=== PATIENT | male | born 1995 | race Caucasian/White ===

== ENCOUNTER 2017-07-01 11:51 | Emergency (ER) | payer OTHER ==
[~2017-07-01] VITALS: Ht 193 cm; Wt 100.0 kg
[2017-07-01 11:56] VITALS: BP 113/75; TEMP 97.5
[2017-07-01] MEDS ORDERED: VYVANSE10 MG PO (12:41)
[2017-07-01 12:52] LABS: COLLECTION METHOD CLEAN CATCH
[2017-07-01 13:05] LABS: MUCOUS Present /lpf; PH 5 (5-8); SQUAMOUS EPITHELIAL 0-2 /hpf; URINE APPEARANCE Cloudy; URINE BACTERIA None Seen /hpf; URINE BILIRUBIN Negative (NEGATIVE); URINE BLOOD 3+ (NEGATIVE); URINE COLOR Yellow; URINE GLUCOSE Negative (NEGATIVE); URINE KETONE Negative (NEGATIVE); URINE LEUKOCYTE ESTERASE Negative (NEGATIVE); URINE PROTEIN(semi-quant) 1+ (NEGATIVE); URINE RBC >50 /hpf; URINE WBC None Seen /hpf
[2017-07-01] MEDS ORDERED: NORCO 325 MG-51 TAB PO (14:32)
[2017-07-01 14:53] VITALS: PULSE 89
== END 2017-07-01 14:53 | disposition home or self-care (01) ==
LOC: COL.ER 11:51
PROVIDERS: Nurse Practitioner
DX: N20.1 Calculus of ureter (principal)
CPT/HCPCS: J2270; J2405; J7030

== ENCOUNTER 2018-10-10 09:09 | Emergency (ER) | payer OTHER | END 2018-10-10 10:24 | disposition home or self-care (01) | LOC: COL.ER 09:09 | DX: S82.832A Other fracture of upper and lower end of left fibula, initial encounter for closed fracture (principal); F90.9 Attention-deficit hyperactivity disorder, unspecified type; W10.9XXA Fall (on) (from) unspecified stairs and steps, initial encounter; Y92.009 Unspecified place in unspecified non-institutional (private) residence as the place of occurrence of the external cause ==